=== PATIENT | male | born 1995 | race Caucasian/White ===

== ENCOUNTER → 2018-03-02 12:09 | Outpatient (CLI) | payer MEDICAID, SELFPAY ==
[2018-03-02 14:15] LABS: Cholesterol 180 mg/dL (50-200); HDL Cholesterol 68 mg/dL (40-60); LDL CHOLESTEROL 107 mg/dL (<100); TSH 1.81 uIU/mL (0.358-3.74); Triglyceride 62 mg/dL (30-150)
[2018-03-02 14:18] LABS: Hemoglobin A1C 5.1 % (4.5-6.2)
== END ==
PROVIDERS: PCP Pediatrics; Visit Provider Family Medicine
DX: Z00.00 Encounter for general adult medical examination without abnormal findings (principal); Z13.1 Encounter for screening for diabetes mellitus; Z13.220 Encounter for screening for lipoid disorders; Z13.29 Encounter for screening for other suspected endocrine disorder
CPT/HCPCS: 36415; 80061; 83721; 83036; 84443

== ENCOUNTER 2019-11-24 07:55 | Outpatient (REF) | payer OTHER, SELFPAY | END 2019-11-24 08:15 | LOC: NCHCN 07:55 | PROVIDERS: PCP Nurse Practitioner Family; Visit Provider Nurse Practitioner Family | DX: Z00.00 Encounter for general adult medical examination without abnormal findings (principal); R19.5 Other fecal abnormalities | CPT/HCPCS: 87177 ==

== ENCOUNTER 2019-11-25 09:50 | Outpatient (REF) | payer OTHER, SELFPAY | END 2019-11-25 10:10 | LOC: NCHCN 09:50 | PROVIDERS: PCP Nurse Practitioner Family; Visit Provider Nurse Practitioner Family | DX: R19.5 Other fecal abnormalities (principal) | CPT/HCPCS: 87177 ==

== ENCOUNTER 2019-12-01 02:52 | Outpatient (CLI) | payer OTHER, SELFPAY ==
[2019-12-01 09:05] LABS: HCT 43.1 % (40.0-50.0); HGB 14.8 g/dL (13.5-17.5)
[2019-12-02 09:54] LABS: HIV-1/2 Ag & Ab Screen Negative (Negative)
== END 2019-12-01 03:12 ==
PROVIDERS: PCP Nurse Practitioner Family; Visit Provider Nurse Practitioner Family
DX: Z00.00 Encounter for general adult medical examination without abnormal findings (principal); Z11.4 Encounter for screening for human immunodeficiency virus [HIV]; Z13.0 Encounter for screening for diseases of the blood and blood-forming organs and certain disorders involving the immune mechanism
CPT/HCPCS: 36415; 87389; 82955; 85014; 85018